=== PATIENT | female | born 1985 | race Caucasian/White ===

== ENCOUNTER 2021-07-13 20:47 | Emergency (ER) | payer BC, OTHER ==
[~2021-07-13] VITALS: Ht 170.2 cm; Wt 138.0 kg
[2021-07-13] MEDS: diazePAM 5 MG TABLET PO ONE (21:13)
[2021-07-13] MEDS: ONDANSETRON PF 4 MG/2 ML VIAL. IVP ONE (21:14)
[2021-07-13] MEDS: DEXAMETHASONE SOD PHOS 20 MG/5 ML VIAL. IV ONE (21:16)
[2021-07-13] MEDS: KETOROLAC 15 MG/ML VIAL. IVP ONE (21:18)
--- NOTE | 2021-07-13 21:44 | PHYS DOC ---
Past Medical History Past Medical History: Asthma, Depression, D.U.B., Hypothyroid Additional Past Medical Histor: ENLARGED LIVER AND SPLEEN Past Surgical History: Cholecystectomy, Tubal ligation Smoking Status: Former Smoker Alcohol Use: None Drug Use: None Adult General Chief Complaint Chief Complaint: BACK PAIN - NO INJURY HPI HPI Patient is a 35 year old female presenting to the emergency department for eval uation of low back pain that radiates down the back and side of her right leg that started earlier this afternoon and has persisted. Patient says that she has had low back pain in the past but has never had pain shooting down her leg. She says that she has had no fevers chills nausea vomiting or other systemic symptoms. Patient denies any weakness numbness tingling saddle anesthesia bowel or bladder incontinence. She is in no acute distress with normal vital signs. Review of Systems Review of Systems Constitutional: Denies fever or chills [] Eyes: Denies change in visual acuity, redness, or eye pain [] HENT: Denies nasal congestion or sore throat [] Respiratory: Denies cough or shortness of breath [] Cardiovascular: No additional information not addressed in HPI [] GI: Denies abdominal pain, nausea, vomiting, bloody stools or diarrhea [] : Denies dysuria or hematuria [] Musculoskeletal: + back pain Integument: Denies rash or skin lesions [] Neurologic: Denies headache, focal weakness or sensory changes [] All other systems were reviewed and found to be within normal limits, except as documented in this note. Current Medications Current Medications Current Medications Medications (Trade) Dose Ordered Sig/Stephanie Start Time Stop Time Status Last Admin Dose Admin Dexamethasone Sodium Phosphate (Decadron) 10 mg 1X ONCE 07/13/21 21:00 07/13/21 21:01 DC 07/13/21 21:16 10 MG Diazepam (Valium) 10 mg 1X ONCE 07/13/21 21:00 07/13/21 21:01 DC 07/13/21 21:13 10 MG Fentanyl Citrate (Fentanyl 2ml Vial) 100 mcg 1X ONCE 07/13/21 21:00 07/13/21 21:01 DC 07/13/21 21:58 50 MCG Ketorolac Tromethamine (Toradol 15mg Vial) 15 mg 1X ONCE 07/13/21 21:00 07/13/21 21:01 DC 07/13/21 21:18 15 MG Ondansetron HCl (Zofran) 4 mg 1X ONCE 07/13/21 21:00 07/13/21 21:01 DC 07/13/21 21:14 4 MG Allergies Allergies Allergies Coded Allergies Type Severity Reaction Last Updated Verified Sulfa (Sulfonamide Antibiotics) Allergy Intermediate 07/17/13 Yes hydromorphone Allergy Intermediate itching 06/22/14 No Physical Exam Physical Exam Constitutional: Well developed, well nourished, no acute distress, non-toxic appearance. [] HENT: Normocephalic, atraumatic, bilateral external ears normal, oropharynx moist, no oral exudates, nose normal. [] Eyes: PERRLA, EOMI, conjunctiva normal, no discharge. [] Neck: Normal range of motion, no tenderness, supple, no stridor. [] Cardiovascular:Heart rate regular rhythm, no murmur [] Lungs & Thorax: Bilateral breath sounds clear to auscultation [] Abdomen: Bowel sounds normal, soft, no tenderness, no masses, no pulsatile masses. [] Skin: Warm, dry, no erythema, no rash. [] Back: Midline and right lumbar paraspinal tenderness to palpation with no obvious deformity or step-off. Extremities: No tenderness, no cyanosis, no clubbing, ROM intact, no edema. [] Neurologic: Alert and oriented X 3, normal motor function, normal sensory function, no focal deficits noted. [] Current Patient Data Vital Signs Vital Signs Date Time Temp Pulse Resp B/P (MAP) Pulse Ox O2 Delivery O2 Flow Rate FiO2 07/13/21 21:58 18 98 Room Air 07/13/21 21:30 68 125/61 (82) 07/13/21 20:48 98.7 98.7 EKG EKG [] Radiology/Procedures Radiology/Procedures [] Course & Med Decision Making Course & Med Decision Making I will check labs and imaging treat symptoms and reassess. Travis Disclaimer Travis Disclaimer This electronic medical record was generated, in whole or in part, using a voice recognition dictation system. Departure Departure Impression: Primary Impression: Lumbar back pain with radiculopathy affecting right lower extremity Disposition: HOME / SELF CARE / HOMELESS Condition: IMPROVED Referrals: UNKNOWN PCP NAME (PCP) Patient Instructions: Sciatica Additional Instructions: Take ibuprofen for pain scheduled every 8 hours and the [place] for breakthrough pain. Please rest over the next 2 to 3 days but you are not bedbound and can do her usual daily activities but avoid turning your torso bending over or lifting heavy objects. Please follow-up with a primary care provider next week to ensure improvemen. If your symptoms persist or worsen you may require an MRI. Come back to emergency department with worsening pain neurologic changes or other general concerns. Thank you! Scripts Prednisone (PREDNISONE) 50 Mg Tablet 1 TAB PO DAILY, #3 TAB Start 07/15 Prov: KRISTEL LEOS DO 07/13/21 Lidocaine (Lidocaine PATCH ) 1 Each Adh..patch 1 EACH TP DAILY for FOR LOCAL PAIN, #7 PATCH REMOVE AFTER 12 HOURS 5% patch Prov: KRISTEL LEOS DO 07/13/21 Ibuprofen (IBUPROFEN) 800 Mg Tablet 800 MG PO PRN Q6HRS PRN for INFLAMMATION, #20 TAB Prov: KRISTEL LEOS DO 07/13/21 Hydrocodone Bit/Acetaminophen (HYDROCODONE-APAP 5-325 ) 1 Tab Tablet 1 TAB PO PRN Q6HRS PRN for PAIN, #14 TAB 0 Refills Prov: KRISTEL LEOS DO 07/13/21 KRISTEL LEOS DO Jul 13, 2021 21:44
[2021-07-13] MEDS: fentaNYL PF VIAL 100 MCG/2 ML VIAL IVP ONE (21:58)
--- NOTE | 2021-07-13 22:06 | RAD ---
Exam Date: 07/13/2021 9:[address] ABDOMEN+PELVIS WO Indication: Reason: back pain / Spl. Instructions: / History: . TECHNIQUE: CT examination of the abdomen and pelvis was performed without oral or intravenous contra st. One or more of the following dose reduction techniques were utilized: *Automated exposure control (AEC) *Adjustment of mA and/or kV according to patient size *Use of iterative reconstruction technique *CT scan done according to ALARA, or ALARA/IMAGE GENTLY FINDINGS: The visualized lung bases are clear. The liver, gallbladder, spleen, pancreas, and adrenal glands are normal. The kidneys are normal bilaterally. No hydronephrosis or hydroureter is seen. No urinary tract calc loretta are seen. Urinary bladder is normal in appearance. There is no bowel obstruction or inflammation. The appendix is normal. There is a small fat-contain ing ventral hernia. No significant atherosclerotic calcifications are seen. No lymphadenopathy or ascites is seen. Degenerative changes are seen in the spine. There is grade 1 anterolisthesis of L5 on S1 with bilate ral pars defects at L5. IMPRESSION: Normal appearance of the kidneys and bladder. No hydronephrosis or hydroureter. No urinary tract ca lculi. Bilateral pars defects at L5 with grade 1 anterolisthesis of L5 on S1. Small fat-containing ventral hernia. Electronically signed by: Jasson Dixon MD (07/13/2021 10:03 PM) [id number]
--- NOTE | 2021-07-13 22:19 | RAD ---
Exam Date: 07/13/2021 9:[address] LUMBAR SPINE RECONSTRUCTION Indication: Reason: BACKPAIN / Spl. Instructions: / History: . TECHNIQUE: CT scan of the lumbar spine was performed without intravenous contrast. Coronal and sagi ttal reconstructed images were reviewed as well. One or more of the following dose reduction techniq ues were utilized: *Automated exposure control (AEC) *Adjustment of mA and/or kV according to patient size *Use of iterative reconstruction technique *CT scan done according to ALARA, or ALARA/IMAGE GENTLY FINDINGS: There is grade 1 anterolisthesis of L5 on S1 with bilateral pars defects at L5. The vertebral body h eights are maintained without compression fracture. There is mild disc space narrowing at L5-S1. Ot her disc heights are maintained. The visualized retroperitoneum and paraspinal soft tissue structure s appear normal. IMPRESSION: Grade 1 anterolisthesis of L5 on S1 is again seen with bilateral pars defects at L5. No compression fracture identified. Electronically signed by: Jasson Dixon MD (07/13/2021 10:17 PM) [id number]
[2021-07-13] MEDS ORDERED: HYDR-2761 PO (22:38)
[2021-07-13] MEDS ORDERED: PRED50TA PO (22:38)
[2021-07-13] MEDS ORDERED: LIDO700A21 TP (22:38)
[2021-07-13] MEDS ORDERED: IBUP-1060 PO (22:38)
[2021-07-13 22:51] VITALS: BP 120/68
== END 2021-07-13 23:00 | disposition home or self-care (01) ==
LOC: ER 20:47
DX: M54.16 Radiculopathy, lumbar region (principal); M79.604 Pain in right leg; J45.909 Unspecified asthma, uncomplicated; E03.9 Hypothyroidism, unspecified; Z87.891 Personal history of nicotine dependence; Z90.49 Acquired absence of other specified parts of digestive tract; Z98.51 Tubal ligation status; Z88.2 Allergy status to sulfonamides; Z88.5 Allergy status to narcotic agent
CPT/HCPCS: 74176; 96374; 96375; 99285; J1100; J1885; J2405; J3010